=== PATIENT | male | born 2000 | race Hispanic/Latino ===

== ENCOUNTER 2024-06-06 19:10 | Emergency (ER) | payer SELFPAY ==
[2024-06-06] MEDS ORDERED: Ondansetron PF 4 MG/2 ML Vial ONE (19:26)
== END 2024-06-06 20:09 | disposition home or self-care (01) ==
LOC: CSHERS 19:10
DX: F10.129 Alcohol abuse with intoxication, unspecified (principal); R11.2 Nausea with vomiting, unspecified
CPT/HCPCS: 96374; J2405